=== PATIENT | female | born 1995 | race Two or more races ===

== ENCOUNTER 2019-01-20 13:20 | Observation (INO) | payer MEDICAID ==
[~2019-01-20] VITALS: Ht 162.6 cm; Wt 59.0 kg
[2019-01-20] MEDS ORDERED: PREN-153 OR (13:44)
[2019-01-20] MEDS ORDERED: ACETAMINOPHEN 325 MG TAB PO ONE (14:00)
== END 2019-01-20 14:20 | disposition home or self-care (01) | DRG 566 ==
LOC: LDRP 13:20
PROVIDERS: ADMIT Specialist; ATTEND Specialist
DX: O26.893 Other specified pregnancy related conditions, third trimester (principal); R10.9 Unspecified abdominal pain; R51 Headache; Z3A.32 32 weeks gestation of pregnancy
CPT/HCPCS: 59025; 81002; G0378

== ENCOUNTER 2019-01-23 08:00 | Observation (INO) | payer MEDICAID ==
[~2019-01-23 08:00] MED LIST: PREN-153 OR
[2019-01-23] MEDS ORDERED: RANITAB8 PO (08:39)
== END 2019-01-23 09:00 | disposition home or self-care (01) | DRG 563 ==
LOC: LDRP 08:00
PROVIDERS: ADMIT Specialist; ATTEND Specialist
DX: O60.03 Preterm labor without delivery, third trimester (principal); O26.893 Other specified pregnancy related conditions, third trimester; R51 Headache; Z3A.33 33 weeks gestation of pregnancy
CPT/HCPCS: 59025; 81002; G0378

== ENCOUNTER 2019-01-30 08:46 | Observation (INO) | payer MEDICAID ==
[~2019-01-30 08:46] MED LIST changes: +RANITAB8 PO
== END 2019-01-30 09:42 | disposition home or self-care (01) | DRG 563 ==
LOC: LDRP 08:46
PROVIDERS: ADMIT Specialist; ATTEND Specialist
DX: O60.03 Preterm labor without delivery, third trimester (principal); Z3A.34 34 weeks gestation of pregnancy
CPT/HCPCS: 59025; 81002; G0378

== ENCOUNTER 2019-02-05 08:53 | Observation (INO) | payer MEDICAID | END 2019-02-05 09:38 | disposition home or self-care (01) | DRG 566 | LOC: LDRP 08:53 | PROVIDERS: ADMIT Specialist; ATTEND Specialist | DX: O26.893 Other specified pregnancy related conditions, third trimester (principal); Z3A.35 35 weeks gestation of pregnancy | CPT/HCPCS: 59025; 81002; G0378 ==

== ENCOUNTER 2019-02-12 11:10 | Observation (INO) | payer MEDICAID | END 2019-02-12 12:10 | disposition home or self-care (01) | DRG 566 | LOC: LDRP 11:10 | PROVIDERS: ADMIT Obstetrics & Gynecology; ATTEND Obstetrics & Gynecology | DX: O26.893 Other specified pregnancy related conditions, third trimester (principal); R51 Headache; Z3A.36 36 weeks gestation of pregnancy | CPT/HCPCS: 59025; 81002; G0378 ==

== ENCOUNTER 2019-02-19 17:16 | Observation (INO) | payer MEDICAID | END 2019-02-19 18:57 | disposition home or self-care (01) | DRG 566 | LOC: LDRP 17:16 | PROVIDERS: ADMIT Specialist; ATTEND Specialist | DX: O26.893 Other specified pregnancy related conditions, third trimester (principal); N89.8 Other specified noninflammatory disorders of vagina; Z3A.37 37 weeks gestation of pregnancy | CPT/HCPCS: 59025; 76815; 81002; G0378 ==

== ENCOUNTER 2019-03-12 13:28 | Observation (INO) | payer MEDICAID | END 2019-03-12 15:40 | disposition home or self-care (01) | DRG 566 | LOC: LDRP 13:28 | PROVIDERS: ADMIT Specialist; ATTEND Specialist | DX: O48.0 Post-term pregnancy (principal); Z3A.40 40 weeks gestation of pregnancy | CPT/HCPCS: 59025; 76818; 81002; G0378 ==

== ENCOUNTER 2019-03-14 09:05 | Observation (INO) | payer MEDICAID | END 2019-03-14 10:35 | disposition home or self-care (01) | DRG 566 | LOC: LDRP 09:05 | PROVIDERS: ADMIT Specialist; ATTEND Specialist | DX: O48.0 Post-term pregnancy (principal); Z3A.40 40 weeks gestation of pregnancy | CPT/HCPCS: 59025; 76818; 81002; G0378 ==

== ENCOUNTER 2019-03-16 08:50 | Observation (INO) | payer MEDICAID ==
[~2019-03-16 08:50] MED LIST changes: -RANITAB8 PO
== END 2019-03-16 10:40 | disposition home or self-care (01) | DRG 563 ==
LOC: LDRP 08:50
PROVIDERS: ADMIT Specialist; ATTEND Specialist
DX: O60.03 Preterm labor without delivery, third trimester (principal); O26.893 Other specified pregnancy related conditions, third trimester; N89.8 Other specified noninflammatory disorders of vagina; O48.0 Post-term pregnancy; Z3A.40 40 weeks gestation of pregnancy
CPT/HCPCS: 59025; 76818; 81002; G0378

== ENCOUNTER 2019-03-18 20:52 | Inpatient (IN) | payer MEDICAID ==
[~2019-03-18] VITALS: Ht 162.6 cm; Wt 69.9 kg
[2019-03-18] MEDS ORDERED: LACTATED RINGER'S 1,000 ML IV SCH (21:04)
[2019-03-18] MEDS ORDERED: LACT. RINGERS/OXYTOCIN 20UNITS 1,000 ML IV SCH (21:04)
[2019-03-18] MEDS ORDERED: DERMOPLAST 60ML BOTTLE TOP PRN (21:15)
[2019-03-18] MEDS ORDERED: PHISODERM TOP SOLN 240ML BTL TOP PRN (21:15)
[2019-03-18] MEDS ORDERED: LIDOCAINE 2%HCL (LOCAL ANESTH.) INJ 20ML MDV ID PRN (21:15)
[2019-03-18] MEDS ORDERED: WITCH HAZEL-GLYCERIN PAD TOP PRN (21:15)
[2019-03-18] MEDS ORDERED: METHYLERGONOVINE MALEATE 0.2 MG/ML AMP IM PRN (21:15)
[2019-03-18 21:41] LABS: Basophils # (auto) 0 uL; Basophils % (auto) 0.3 % (0.0-2.0); Eosinophils # (auto) 0 uL; Eosinophils % (auto) 0.3 % (0.0-7.0); Hematocrit 33.5 % (36.0-46.0); Lymphocytes # (auto) 1.2 uL; Lymphocytes % (auto) 15.2 % (10.0-50.0); Mean Corpuscular Hemoglobin 27.1 pg (28.0-32.0); Mean Corpuscular Hgb Conc. 32.8 g/dL (32.0-36.0); Mean Corpuscular Volume 82.7 fL (80.0-100.0); Monocytes # (auto) 0.4 uL; Monocytes % (auto) 4.9 % (0.0-12.0); Neutrophils # (auto) 6.1 uL; Neutrophils % (auto) 79.3 % (37.0-80.0); Platelet Count (auto) 162 10^3/uL (140-450); Red Blood Cells 4.05 10^6/uL (4.0-5.20); Red Cell Distribution Width 16.2 % (11.8-14.3); White Blood Cell 7.7 10^3/uL (4.4-10.8)
[2019-03-18 21:46] LABS: Urine Bacteria FEW /hpf (None Seen); Urine Blood 1+ /uL (Negative); Urine Specific Gravity 1.007 (1.001-1.035); Urine WBC 4 /hpf (0 - 5)
[2019-03-18 21:55] LABS: INR < 0.93 (0.9-1.15); Partial Thromboplastin Time 27.1 sec (23.64-32.05)
[2019-03-18 22:00] LABS: Albumin 2.7 g/dL (3.4-5.0); BUN/Creatinine Ratio 16.1; Calcium 8.5 mg/dL (8.5-10.1); Potassium 3.9 mmol/L (3.5-5.1)
[2019-03-18 22:03] LABS: Bilirubin, Total 0.4 mg/dL (0.2-1.0)
[2019-03-18 22:23] LABS: Alcohol, Urine < 3.0 mg/dL (0-5); Amphetamine Screen, Urine NEGATIVE (NEGATIVE); Barbiturate Scree,Urine NEGATIVE (NEGATIVE); Benzodiazephine Screen, Urine NEGATIVE (NEGATIVE); Cannabinoid Screen, Urine NEGATIVE (NEGATIVE); Cocaine Screen, Urine NEGATIVE (NEGATIVE); Opiate Scree,Urine NEGATIVE (NEGATIVE); Phencyclidine Screen, Urine NEGATIVE (NEGATIVE)
[2019-03-19] MEDS ORDERED: LACT. RINGERS/OXYTOCIN 20UNITS 1,000 ML IV SCH (03:50)
[2019-03-19] MEDS ORDERED: PROMETHAZINE HCL 25 MG/ML 1ML IV PRN (04:00)
[2019-03-19] MEDS ORDERED: NALBUPHINE HCL 10 MG/1ml INJECTION IV PRN (04:00)
[2019-03-19] MEDS ORDERED: fentaNYL W ROPIVACAINE 150 ML EPI SCH ×2 (08:00→09:30)
[2019-03-19] MEDS ORDERED: ePHEDrine SULFATE 50 MG/ML AMP IV ONE ×2 (08:00→09:30)
[2019-03-19] MEDS ORDERED: LACTATED RINGER'S 1,000 ML IV ONE (08:00)
[2019-03-19] MEDS ORDERED: NALOXONE HCL 0.4 MG/ML VIAL IV ONE ×2 (08:00→09:30)
[2019-03-19] MEDS ORDERED: SODIUM CHLORIDE 0.9% 500 ML IV PRN (09:20)
[2019-03-19] MEDS ORDERED: ACETAMINOPHEN 325 MG TAB PO PRN (12:30)
[2019-03-19 12:45] VITALS: BP 109/58
--- NOTE | 2019-03-19 12:45 | NUR ---
Ambulation: Patient OOB with standby assistance by RN. Patient ambulated to bathroom with steady gait. Patient able to void without difficulty 300ml. [facility] teaching provided with returned demonstration by patient. Clean gown provided. PT to transferred to [facility]. Patient ambulated back to chair with steady gait and no signs of distress or dizziness noted. Addendum: 03/19/19 at 1726 by Allie Reyes RN PT voided 800ml, not 300ml.
--- NOTE | 2019-03-19 13:40 | NUR ---
Report received from Yomi Andre on stable patient; care assumed at this time. Addendum: 03/19/19 at 1725 by Allie Reyes RN Error, PT voided 800ml, not 300ml.
[2019-03-19 15:15] VITALS: BP 104/52
--- NOTE | 2019-03-19 18:30 | NUR ---
Opening Shift Note Received report from LORETTA Hernandez and assumed care of patient, awake and alert. No S/S of distress/SOB or pain. Instructed patient to call for assist if needed and verbalized understanding. Will continue to monitor.
[2019-03-19 19:00] VITALS: BP 107/66
--- NOTE | 2019-03-19 22:15 | NUR ---
Pain: Patient called c/o pain in her perineal area . Pain scale 4/10. Tylenol 650 mg PO given for pain.
[2019-03-19 23:00] VITALS: BP 111/70
[2019-03-19] MEDS ORDERED: ACETAMINOPHEN/CODEINE#3 (300/30mg) TAB PO ONE (23:00)
[2019-03-20] MEDS: IBUPROFEN 600 MG TAB PO PRN ×2 (00:04→11:45)
[2019-03-20 03:00] VITALS: BP 101/70
[2019-03-20] MEDS ORDERED: TETANUS-DIPTH-ACEL PERTUSSIS 0.5ML SYRG IM ONE (03:15)
[2019-03-20 06:50] VITALS: BP 112/74
--- NOTE | 2019-03-20 07:15 | NUR ---
IV removal IV DC'd with clean technique, catheter fully intact. Pressure dressing applied to site. Patient tolerated procedure well.
--- NOTE | 2019-03-20 08:00 | NUR ---
Teaching: Reviewed information in [facility] [employer] booklet with patient. Discussed benefits of and risks associated with not . Discussed different positions, proper latch, feeding cues, and baby-led . Provided information of medication side effects related to . All questions and concerns addressed at this time. Patient verbalized understanding of information.
[2019-03-20 11:30] VITALS: BP 110/77
--- NOTE | 2019-03-20 13:10 | NUR ---
Discharge: Discharge instructions given as ordered. Pt encouraged to follow up with [facility] as instructed. All questions and concerns addressed. Patient verbalized understanding. Medication reconciliation completed and copy given to patient. All required/requested vaccines given and copies of vaccinations given to patient. Patient encouraged to prepare to depart unit.
[2019-03-20 13:14] LABS: RPR Non Reactive (Non Reactive)
--- NOTE | 2019-03-20 13:35 | NUR ---
Discharge: Patient ambulated to vehicle with all personal belongings, accompanied by staff and family member. No distress noted at time of departure, no adverse changes in status since initial assessment.
== END 2019-03-20 13:45 | disposition home or self-care (01) | DRG 560 ==
LOC: LDRP 20:52
PROVIDERS: ADMIT Obstetrics & Gynecology; ATTEND Obstetrics & Gynecology
PROC: 10E0XZZ Delivery of Products of Conception, External Approach (ICD-10-PCS; principal; 2019-03-19)
PROC: 0KQM0ZZ Repair Perineum Muscle, Open Approach (ICD-10-PCS; 2019-03-19)
PROC: 0W8NXZZ Division of Female Perineum, External Approach (ICD-10-PCS; 2019-03-19)
PROC: 3E0R3BZ Introduction of Anesthetic Agent into Spinal Canal, Percutaneous Approach (ICD-10-PCS; 2019-03-19)
PROC: 00HU33Z Insertion of Infusion Device into Spinal Canal, Percutaneous Approach (ICD-10-PCS; 2019-03-19)
DX: O48.0 Post-term pregnancy (principal); O72.1 Other immediate postpartum hemorrhage; O70.1 Second degree perineal laceration during delivery; Z37.0 Single live birth; Z3A.40 40 weeks gestation of pregnancy
CPT/HCPCS: 36415; 51702; 59025; 59409; 62282; 80053; 80307; 81001; 84112; 85025; 85610; 85730; 86592; 86850; 86900; 86901; 90472; 90715; 96365; 96366; 96372; 96374; 96375; G0378; J2590; J3010

== ENCOUNTER 2024-01-04 23:20 | Observation (INO) | payer BC, MEDICAID ==
[~2024-01-04] VITALS: Ht 162.6 cm; Wt 64.9 kg
[~2024-01-04 23:20] MED LIST changes: -PREN-153 OR; +PREN1TAB71 OR
[2024-01-05] MEDS ORDERED: FERR-7 PO (00:21)
== END 2024-01-05 00:58 | disposition home or self-care (01) ==
LOC: LDRP 23:20
PROVIDERS: ADMIT Obstetrics & Gynecology; ATTEND Obstetrics & Gynecology
DX: O36.8130 Decreased fetal movements, third trimester, not applicable or unspecified (principal); Z3A.33 33 weeks gestation of pregnancy
CPT/HCPCS: 59025; 76818; 81002; 94760; G0378

== ENCOUNTER 2024-02-13 21:50 | Observation (INO) | payer BC, MEDICAID ==
[~2024-02-13] VITALS: Ht 162.6 cm; Wt 68.0 kg
[~2024-02-13 21:50] MED LIST changes: +FERR-7 PO
== END 2024-02-13 23:09 | disposition home or self-care (01) ==
LOC: LDRP 21:50
PROVIDERS: ADMIT Obstetrics & Gynecology; ATTEND Obstetrics & Gynecology
DX: O47.1 False labor at or after 37 completed weeks of gestation (principal); Z3A.38 38 weeks gestation of pregnancy
CPT/HCPCS: 59025; 81002; 94760; G0378

== ENCOUNTER 2024-02-17 01:01 | Observation (INO) | payer BC, MEDICAID ==
[~2024-02-17] VITALS: Ht 162.6 cm; Wt 68.0 kg
== END 2024-02-17 02:32 | disposition home or self-care (01) ==
LOC: LDRP 01:01
PROVIDERS: ADMIT Obstetrics & Gynecology; ATTEND Obstetrics & Gynecology
DX: O62.9 Abnormality of forces of labor, unspecified (principal); Z3A.39 39 weeks gestation of pregnancy
CPT/HCPCS: 59025; 81002; 94760; G0378

== ENCOUNTER 2024-02-21 22:10 | Inpatient (IN) | payer BC, MEDICAID ==
[~2024-02-21] VITALS: Ht 162.6 cm; Wt 68.5 kg
[2024-02-21] MEDS ORDERED: BUTORPHANOL TARTRATE 2 MG/1 ML VIAL IV PRN (22:30)
[2024-02-21] MEDS ORDERED: LIDOCAINE 2%HCL (LOCAL ANESTH.) INJ 20ML MDV IJ PRN (22:30)
[2024-02-21 22:49] LABS: Urine Bacteria None Seen /hpf (None Seen)
[2024-02-21 22:55] LABS: Basophils # (auto) 0 10 ^3/uL (0-0.2); Basophils % (auto) 0.3 % (0.0-2.0); Eosinophils # (auto) 0 10 ^3/uL (0-0.8); Eosinophils % (auto) 0.3 % (0.0-7.0); Hematocrit 30.8 % (36.0-46.0); Hemoglobin 10.2 g/dL (12.2-16.2); Lymphocytes # (auto) 1.4 10 ^3/uL (0.4-5.4); Lymphocytes % (auto) 17.4 % (10.0-50.0); Mean Corpuscular Hemoglobin 26.6 pg (28.0-32.0); Mean Corpuscular Hgb Conc. 33.3 g/dL (32.0-36.0); Mean Corpuscular Volume 79.8 fL (80.0-100.0); Monocytes # (auto) 0.4 10 ^3/uL (0-1.3); Monocytes % (auto) 4.5 % (0.0-12.0); Neutrophils # (auto) 6.2 10 ^3/uL (1.6-8.6); Neutrophils % (auto) 77.5 % (37.0-80.0); Platelet Count (auto) 177 10^3/uL (140-450); Red Blood Cells 3.86 10^6/uL (4.0-5.20); Red Cell Distribution Width 16.6 % (11.8-14.3)
[2024-02-21] MEDS: LACTATED RINGER'S 1,000 ML IV SCH (22:58)
[2024-02-21 23:02] LABS: Urine Blood Negative /uL (Negative); Urine Clarity Clear (Clear); Urine Color Light-Yellow (Yellow); Urine Mucus FEW (None Seen); Urine Protein, UAD Negative (Negative); Urine Specific Gravity 1.022 (1.001-1.035); Urine Urobilinogen Normal (Negative); Urine WBC 2 /hpf (0 - 5); Urine pH 6.5 (5.0-9.0)
[2024-02-21 23:11] LABS: Albumin 3.7 g/dL (3.2-4.8); Alkaline Phosphatase 155 U/L (46-116); Anion Gap 8 (5-15); Aspartate Aminotransferase 15 U/L (13-40); BUN/Creatinine Ratio 12.3 (10.0-20.0); Blood Urea Nitrogen 7 mg/dL (9-23); Calcium 9.1 mg/dL (8.7-10.4); Carbon Dioxide 22 mmol/L (20-30); Chloride 104 mmol/L (98-107); Glucose 131 mg/dL (74-106); Potassium 3.7 mmol/L (3.5-5.1); Sodium 134 mmol/L (136-145)
[2024-02-21 23:12] LABS: Bilirubin, Total 0.6 mg/dL (0.2-1.0); Total Protein 6.6 g/dL (5.7-8.2)
[2024-02-21 23:13] LABS: INR 0.96 (0.9-1.15); Partial Thromboplastin Time 25.9 SEC (24.5-34.5); Prothrombin Time 10.2 sec (9.3-11.8)
[2024-02-21 23:17] LABS: Amphetamine Screen, Urine Neg (NEGATIVE); Barbiturate Scree,Urine Neg (NEGATIVE); Benzodiazephine Screen, Urine Neg (NEGATIVE); Cannabinoid Screen, Urine Neg (NEGATIVE); Cocaine Screen, Urine Neg (NEGATIVE); Opiate Scree,Urine Neg (NEGATIVE); Phencyclidine Screen, Urine Neg (NEGATIVE)
[2024-02-21 23:18] LABS: Alanine Aminotransferase < 9 U/L (7-40)
[2024-02-22] MEDS: LACTATED RINGER'S 1,000 ML IV ONE ×2 (00:36→06:00)
[2024-02-22] MEDS: WITCH HAZEL-GLYCERIN PAD TOP PRN (01:42)
[2024-02-22] MEDS: miSOPROStol 50 MCG per PRE-CUT 1/2 TAB PO PRN (01:42)
[2024-02-22] MEDS: PHISODERM TOP SOLN 240ML BTL TOP PRN (01:43)
[2024-02-22] MEDS: DERMOPLAST 60ML BOTTLE TOP PRN (01:43)
[2024-02-22] MEDS ORDERED: TERBUTALINE SULFATE 1 MG/ML 1ML VIAL SC PRN ×2 (01:45→06:00)
[2024-02-22] MEDS ORDERED: METHYLERGONOVINE MALEATE 0.2 MG/ML AMP IM PRN (03:00)
[2024-02-22] MEDS ORDERED: miSOPROStol 100 mcg TAB SL PRN (03:00)
[2024-02-22] MEDS ORDERED: ONDANSETRON HCL 4 MG/2 ML VIAL IV PRN (03:00)
[2024-02-22] MEDS ORDERED: CARBOPROST TROMETHAMINE 250 MCG/1ML VIAL IM PRN (03:00)
[2024-02-22] MEDS ORDERED: miSOPROStol 100 mcg TAB PR PRN (03:00)
[2024-02-22] MEDS: BUTORPHANOL TARTRATE 2 MG/1 ML VIAL IV PRN (05:58)
[2024-02-22] MEDS ORDERED: NALOXONE HCL 0.4 MG/ML VIAL IV ONE ×2 (06:00→06:45)
[2024-02-22] MEDS ORDERED: fentaNYL CITRATE 100 MCG/2 ML VL IV ONE (06:00)
[2024-02-22] MEDS ORDERED: ePHEDrine SULFATE 50 MG/ML AMP IV ONE ×2 (06:00→06:45)
[2024-02-22] MEDS ORDERED: LACT. RINGERS/OXYTOCIN 20UNITS 1,000 ML IV SCH (06:00)
[2024-02-22] MEDS: LIDOCAINE HCL 2 %PF INJ 10ML AMP IJ ONE (06:00)
[2024-02-22] MEDS ORDERED: DIPHENOXYLATE W/ATROPINE 2.5 MG TAB PO PRN (07:00)
[2024-02-22] MEDS: LACT. RINGERS/OXYTOCIN 20UNITS 500 ML IV ONE ×2 (07:04→07:05)
[2024-02-22] MEDS: fentaNYL CITRATE 100 MCG/2 ML VL IV ONE (07:06)
[2024-02-22] MEDS ORDERED: ONDANSETRON ODT 4 MG TAB PO PRN (07:15)
[2024-02-22 11:00] VITALS: BP 96/51; PULSE 75; RESP 17; TEMP 98.4; O2SAT 98
[2024-02-22] MEDS: IBUPROFEN 600 MG TAB PO PRN (12:01)
[2024-02-22 15:00] VITALS: BP 99/56; PULSE 73; RESP 17; TEMP 97.7; O2SAT 98
[2024-02-22 19:28] VITALS: BP 102/53; PULSE 55; RESP 16; TEMP 98.1; O2SAT 100
[2024-02-22] MEDS: DOCUSATE SOD 100 MG CAP PO SCH (22:06)
[2024-02-22] MEDS: ACETAMINOPHEN 325 MG TAB PO PRN (22:22)
[2024-02-22 23:13] VITALS: BP 100/59; PULSE 82; RESP 14; TEMP 98.2; O2SAT 97
[2024-02-23 03:29] VITALS: BP 110/62; PULSE 64; RESP 16; TEMP 98.1; O2SAT 98
[2024-02-23 07:06] LABS: RPR Non Reactive (Non Reactive)
[2024-02-23 07:07] VITALS: BP 92/63; PULSE 81; RESP 18; TEMP 98.2; O2SAT 97
[2024-02-23 11:30] VITALS: BP 121/70; PULSE 76; RESP 18; TEMP 98.2; O2SAT 98
== END 2024-02-23 13:20 | disposition home or self-care (01) | DRG 807 ==
LOC: LDRP 22:10
PROVIDERS: ADMIT Obstetrics & Gynecology; ATTEND Obstetrics & Gynecology
PROC: 10E0XZZ Delivery of Products of Conception, External Approach (ICD-10-PCS; principal; 2024-02-22)
PROC: 0KQM0ZZ Repair Perineum Muscle, Open Approach (ICD-10-PCS; 2024-02-22)
PROC: 3E0DXGC Introduction of Other Therapeutic Substance into Mouth and Pharynx, External Approach (ICD-10-PCS; 2024-02-22)
PROC: 0UQMXZZ Repair Vulva, External Approach (ICD-10-PCS; 2024-02-22)
DX: O70.1 Second degree perineal laceration during delivery (principal); Z37.0 Single live birth; O71.82 Other specified trauma to perineum and vulva; Z3A.39 39 weeks gestation of pregnancy
CPT/HCPCS: 36415; 59025; 59409; 62282; 76818; 80053; 80307; 81001; 81002; 85025; 85610; 85730; 86592; 86803; 86850; 86900; 86901; 94760; 94762; 96360; 96361; 96365; 96366; 96374; G0378; J2590

== ENCOUNTER 2025-03-17 19:28 | Emergency (ER) | payer BC, MEDICAID ==
[~2025-03-17] VITALS: Ht 162.6 cm; Wt 52.8 kg
--- NOTE | 2025-03-17 19:50 | ED.PDOC ---
History of Present Illness HPI Comments 29 y/o F, presents to the ED for CC of Flu-like symptoms. Patient states, she has been experiencing symptoms of neck pain/stiffness with associated shortness of breath xdays. Patient reports, pain with inspiration. Patient denies fever, sore-throat, cough, or loss of taste and smell. No other symptoms or modifying factors are present at this time. Chief Complaint: Flu like Time Seen by MD: 19:45 Reviewed Notes: Nurses Notes, Medications, Allergies Allergies: Coded Allergies: NO KNOWN ALLERGIES (Unverified , 01/20/19) Home Meds Reported Medications Ferrous Sulfate (Iron) 325 Mg Tab, 325 MG PO, TAB 01/05/24 Vit W/ Ferrous Fumara (PNV PLUS MULTIVI) Plus Tab, 1 TAB.CHEW OR BID, TAB 01/20/19 Information Source: Patient Mode of Arrival: Ambulatory Severity: Moderate Timing: Days Duration: Since onset Prehospital treatment: None Past Medical History PAST MEDICAL HISTORY: Denies Surgical History: Denies all surgeries FACE HARDENER History: Denies all FACE HARDENER Hx Family History Family History: Unknown Social History Smoker: Non-Smoker Alcohol: Denies ETOH Use Drugs: Denies Drug Use Lives In: Home Constitutional: denies: chills, diaphoresis, fatigue, fever, malaise, sweats, weakness, others EENTM: denies: blurred vision, double vision, ear bleeding, ear discharge, ear drainage, ear pain, ear ringing, eye pain, eye redness, hearing loss, mouth pain, mouth swelling, nasal discharge, nose bleeding, nose congestion, nose pain, photophobia, tearing, throat pain, throat swelling, voice changes, others Respiratory: reports: shortness of breath; denies: cough, hemoptysis, orthopnea, SOB at rest, SOB with excertion, stridor, wheezing, others Cardiovascular: denies: chest pain, dizzy spells, diaphoresis, Dyspnea on exertion, edema, irregular heart beat, left arm pain, lightheadedness, palpitations, PND, syncope, others Gastrointestinal: denies: abdomen distended, abdominal pain, blood streaked bowels, constipated, diarrhea, dysphagia, difficulty swallowing, hematemesis, melena, nausea, poor appetite, poor fluid intake, rectal bleeding, rectal pain, vomiting, others Genitourinary: denies: abnormal vagina bleeding, burning, dyspareunia, dysuria, flank pain, frequency, hematuria, incontinence, pain, , vagina discharge, urgency, others Neurological: denies: dizziness, fainting, headache, left sided numbness, left sided weakness, numbness, paresthesia, pre-existing deficit, right sided numbness, right sided weakness, seizure, speech problems, tingling, tremors, weakness, others Musculoskeletal: reports: neck pain; denies: back pain, gout, joint pain, joint swelling, muscle pain, muscle stiffness, others Integumetry: denies: bruises, change in color, change in hair/nails, dryness, laceration, lesions, lumps, rash, wounds, others Allergic/Immunocompromised: denies: Difficulty Healing, Frequent Infections, Hives, Itching, others Hematologic/Lymphatic: denies: anemia, blood clots, easy bleeding, easy bruising, swollen glands, others Endocrine: denies: excessive hunger, excessive sweating, excessive thirst, excessive urination, flushing, intolerance to cold, intolerance to heat, unexplained weight gain, unexplained weight loss, others Psychiatric: denies: anxiety, bipolar disorder, depression, hopeless, panic disorder, schizophrenia, sleepless, suicidal, others All Other Systems: Reviewed and Negative Physical Exam General Appearance: No Apparent Distress, Normal HEENT: Normal ENT Inspection, Pharynx Normal Neck: Full Range of Motion, Non-Tender, Normal, Normal Inspection Respiratory: Chest Non-Tender, Lungs Clear, No Accessory Muscle Use, No Respiratory Distress, Normal Breath Sounds Cardiovascular: No Edema, No Murmur, No Gallop, Normal Peripheral Pulses, Re gular Rate/Rhythm Breast Exam: Deferred Gastrointestinal: No Organomegaly, Non Tender, No Pulsatile Mass, Normal Bowel Sounds, Soft Genitalia: Deferred Pelvic: Deferred Rectal: Deferred Extremities: No calf tenderness, Normal capillary refill, Normal inspection, Normal range of motion, Non-tender, No pedal edema Musculoskeletal : Apperance: Normal Neurologic: Alert, valve steamer II-XII nml as Tested, No Motor Deficits, Normal Affect, Normal Mood, No Sensory Deficits Cerebellar Function: Normal Reflexes: Normal Skin: Dry, Normal Color, Warm Lymphatic: No Adenopathy Was a procedure done? Was a procedure done?: No Differential Dx Considerations may include: URI, INFLUENZA, COVID-19, SINUITIS, MUSCULOSKELETAL PAIN, ANXIETY X-Ray, Labs, Meds, VS Vital Signs Date Time Temp Pulse Resp B/P (MAP) Pulse Ox O2 Delivery O2 Flow Rate FiO2 03/17/25 19:30 97.9 98 18 113/83 96 97.9 X-Ray, Labs, Meds, VS Comment Imaging was reviewed by this provider, there is no obvious pathological or acute disease process. Pending radiology review Labs were reviewed by this provider, no abnormalities Vital signs reviewed by this provider, clinically stable Time of 1ST Reevaluation: 20:15 Reevaluation 1ST: Unchanged Patient Education/Counseling: Diagnosis, Treatment, Need For Follow Up (Follow up with PCP next available appointment. Return to emergency department symptoms worsen.) Family Education/Counseling: No Family Present SEPSIS Sepsis Screen Date sepsis recognized/suspect: Mar 17, 2025 Time Sepsis recognized/suspect: 1932 Recent Procedure: No On Antibiotic Therapy: No Respiratory Rate >20: No Heart Rate >90: No Temp<36 C (96.8 F) or >38.3 C: No SBP <90 or MAP <65 mmHG: No New Acute Mental Status Change: No Is the patient on CPAP, BIPAP,: No Physician Orders Chest Xray 1 View (03/17/25 19:58) Vital Signs Date Time Temp Pulse Resp B/P (MAP) Pulse Ox O2 Delivery O2 Flow Rate FiO2 03/17/25 19:30 97.9 98 18 113/83 96 97.9 Departure 1 Departure Time of Disposition: 20:41 Impression: Primary Impression: Anxiety Additional Impression: Shortness of breath Disposition: 01 HOME / SELF CARE / HOMELESS Condition: Fair Discharged With: Self Critical Care Note Critical Care Time?: No Stability Stability form required: No Heart Score Heart Score: Heart Score Response (Comments) Value History N/A 0 EKG N/A 0 Age N/A 0 Risk Factors N/A 0 Troponin N/A 0 Total 0 I personally scribed for SOREN LEÓN ([email or web address]) on 03/17/25 at 19:50. Electronically submitted by Marilou Malagon ([email or web address]). SOREN LEÓN Mar 17, 2025 19:50
--- NOTE | 2025-03-17 20:31 | DVH ---
CHEST RADIOGRAPH Indication: sob Technique: Single frontal view of the chest was obtained Comparison: None FINDINGS: Lines and Tubes: None Lungs: No focal consolidation. Pleura: No effusion. No pneumothorax. Cardiomediastinal contours: Unremarkable Bones: No acute osseous abnormality. IMPRESSION: 1. No acute cardiopulmonary disease.
[2025-03-17 20:45] VITALS: BP 117/64; PULSE 79; RESP 17; TEMP 98.2; O2SAT 99
== END 2025-03-17 21:00 | disposition home or self-care (01) ==
LOC: ER 19:28
DX: R06.02 Shortness of breath (principal); F41.9 Anxiety disorder, unspecified; M54.2 Cervicalgia
CPT/HCPCS: 71045